=== PATIENT | male | born 1980 | race Caucasian/White ===

== ENCOUNTER 2020-10-23 16:22 | Outpatient (CLI) | payer OTHER, SELFPAY ==
--- NOTE | ~2020-10-23 | XR_ITS ---
EXAMINATION: XR shoulder RT min 2V DATE: 10/23/2020 16:48 INDICATION: Right shoulder pain. TECHNIQUE: 5 views of right shoulder were obtained. COMPARISON: Right shoulder radiographs 03/22/2013 FINDINGS: Bone alignment is normal. No fracture. Joint spaces are well maintained. IMPRESSION: 1. Normal right shoulder. Reviewed, dictated and finalized at location A. STRIAL SERVICER IMPRESSION: 1. Normal right shoulder.
== END 2020-10-23 16:23 | disposition home or self-care (01) ==
LOC: CHSIMG 16:27
PROVIDERS: PCP Family Medicine; Visit Provider Family Medicine
DX: M25.519 Pain in unspecified shoulder (principal)
CPT/HCPCS: 73030

== ENCOUNTER 2021-03-20 15:58 | Outpatient (RCR) | payer OTHER, SELFPAY ==
--- NOTE | 2021-03-20 17:23 | PTOPEVAL ---
Thank you for referring Luisito Gill to [facility].? The patient is scheduled to be seen for therapy? ____x/week for ___ weeks. Please review, sign, date and return this plan of care JOSE. I agree with and certify that the following plan of care is medically necessary. Referring Physician Date Admitting Provider: Attending Provider: BAO RAE Referring Provider: FELISA Outpatient Evaluation Start: 03/20/21 16:03 Freq: Status: Active Protocol: Document 03/20/21 16:03 ACR (Rec: 03/20/21 17:23 [id number] [email or web address]) Therapy Assessment Status Assessment Status Assessment Status Evaluation Evaluation Information Problem Diagnosis R RTC tear Onset 02/28/21 Subjective Information Patient states that he Query Text:As Reported By Patient/ believes his shoulder was Family already torn, but in August he had to pull his dog into the boat and made it worse. The patient states that this is the 3rd surgery that he has gotten. He has been in the sling the past 3 weeks and is not going back to see the doctor for another 4 weeks and is required to stay in the sling. Patient states he has been in a recliner since August. 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 Patient states he is not taking anything for pain, but will occasionally take a tylenol if he is in too much pain. Patient would like to get his movement back. Prior Level of Function Activity Level (Last 3 Months) Occupation superintendent production in construction Hand Dominance Ambidextrous Activity of Daily Living Ability Independent Indoor/Home Mobility Independent Community Mobility Independent Stairs Ability Independent Functional Cognition (Planning, Shopping Independent , Taking Medications) Cooking Yes Cleaning Yes Laundry Yes Shopping Yes Driving Yes Pain Assessment Timing of Pain Assessment Timing of Pain Assessment Assessment Pain Scale Pain
--- NOTE | 2021-03-26 16:52 | PCPTNOTE ---
On 03/26/21, the student, [Liz Joy, SPTA ], provided care and completed [facility] on this patient. I have reviewed the student's documentation and agree with the findings. Mira Harvey SPTA
--- NOTE | 2021-03-27 09:13 | PCPTNOTE ---
On 03/27/21, the student, [ Liz Joy, [facility] provided care and completed [employer] documentation on this patient. I have reviewed the student's documentation and agree with the findings.
--- NOTE | 2021-04-10 17:04 | PCPTNOTE ---
On 04/10/21, the student, [Karin Pérez, SPT], provided care and completed [employer] documentation on this patient. I have reviewed the student's documentation and agree with the findings.
--- NOTE | 2021-04-18 17:20 | PCPTNOTE ---
On 04/18/21, the student, [Karin Pérez, SPT], provided care and completed [employer] documentation on this patient. I have reviewed the student's documentation and agree with the findings.
--- NOTE | 2021-04-30 16:50 | PTOPEVAL ---
Thank you for referring Luisito Gill to [facility].? The patient is scheduled to be seen for therapy? ____x/week for ___ weeks. Please review, sign, date and return this plan of care JOSE. I agree with and certify that the following plan of care is medically necessary. Referring Physician Date Admitting Provider: Attending Provider: BAO RAE Referring Provider: FELISA Outpatient Evaluation Start: 03/20/21 16:03 Freq: Status: Active Protocol: Document 04/30/21 16:03 ACR (Rec: 04/30/21 16:50 [id number] [email or web address]) Therapy Assessment Status Assessment Status Assessment Status Progress Evaluation Information Problem Diagnosis R RTC tear Onset 02/28/21 Subjective Information Patient states that he is able Query Text:As Reported By Patient/ to get his arm above his head Family . He states he has some stiff Pain Assessment Pain Scale Pain Scale Used Numeric (1 - 10) Self Report Pain Assessment Right Shoulder(s) Reported Pain Level 0 Greatest Pain Intensity 2 Pain Score Pain Score 0: Self Report Upper Extremity Range of Motion Scapular/ Shoulder Range of Motion Right Shoulder Flexion - Active 145 Shoulder Medial Rotation - Active 38 Shoulder Lateral Rotation - Active 42 Upper Extremity Muscle Strength Testing General Upper Extremity Strength Gross Upper Extremity Strength Comments Still cannot assess patient's strength due to patient's protocol General Exercise General Exercises Exercise Description -pulleys x5min Query Text:Record Sets, Reps, -UBE x 6 min L1 (3fwd and 3rev Resistance, and Position ) with the R arm resting on the handle not applying pressure to push forward or pull in reverse -scapular retraction isometric x3 minutes -supine shoulder flex AAROM w stick x20 -supine shoulder flex press AAROM w stick x20 -supine shoulder IR/ER AAROM w stick x20 -PROM into flexion, scaption, abduction, and ER/IR x 15 minutes -supine arom R shoulder flex x10 -supine arom R shoudler IR/ER x10 -sidelying arom R shoulder ER x10
--- NOTE | 2021-06-28 17:45 | PTOPEVAL ---
Thank you for referring Luisito Gill to [facility].? The patient is scheduled to be seen for therapy? ____x/week for ___ weeks. Please review, sign, date and return this plan of care JOSE. I agree with and certify that the following plan of care is medically necessary. Referring Physician Date Admitting Provider: Attending Provider: BAO RAE Referring Provider: FELISA Outpatient Evaluation Start: 03/20/21 16:03 Freq: Status: Active Protocol: Document 06/28/21 16:43 ACR (Rec: 06/28/21 17:44 [id number] [email or web address]) Therapy Assessment Status Assessment Status Assessment Status Discharge Evaluation Information Problem Diagnosis R RTC tear Onset 02/28/21 Subjective Information Patient states that his Query Text:As Reported By Patient/ shoulder goes further than it Family has gone in a decade and he has no difficulty. His L shoulder is now giving him pain because he picked up his tool box and increased his lever arm and he felt a pull. Pain Assessment Timing of Pain Assessment Timing of Pain Assessment Assessment Pain Scale Pain Scale Used Numeric (1 - 10) Self Report Pain Assessment Right Shoulder(s) Reported Pain Level 0 Greatest Pain Intensity 0 Pain Score Pain Score 0: Self Report Interventions Used Interventions Used By Clinicians Activity or ADL's,Exercise Upper Extremity Range of Motion Scapular/ Shoulder Range of Motion Right Shoulder Flexion - Active 168 Shoulder Abduction - Active 155 Shoulder Medial Rotation - Active 55 Shoulder Lateral Rotation - Active 70 Upper Extremity Muscle Strength Testing Scapular/Shoulder Right Shoulder Flexion Strength 4+ Good + Shoulder Extension Strength 4+ Good + Shoulder Medial Rotation Strength 4+ Good + Shoulder Lateral Rotation Strength 4 Good Left Shoulder Flexion Strength 3 Fair Shoulder Abduction Strength 3+ Fair + Shoulder Medial Rotation Strength 4 Good Shoulder Lateral Rotation Strength 3 Fair Special Tests-Upper Extremity Shoulder Special Tests Empty Can (supraspinatus) Test Negative Right,Positive Left Drop Arm Test Negative Right,Positive Left General Exercise General Exercises Exercise Description - pulleys x 5 min Query Text:Record Sets, Reps, - PROM into flexion, scaption, Resistance, and Position abduction, and ER/IR x 10 minutes - TB scap retraction blue x 20 - TB shoulder ext x 20 - R shoulder ER blue x 10
== END 2021-06-28 23:59 | disposition home or self-care (01) ==
LOC: CHSPT 15:58
DX: S46.011D Strain of muscle(s) and tendon(s) of the rotator cuff of right shoulder, subsequent encounter (principal); Z09 Encounter for follow-up examination after completed treatment for conditions other than malignant neoplasm
CPT/HCPCS: 97014; 97110; 97140; 97161; G0283

== ENCOUNTER 2024-02-18 16:42 | Outpatient (CLI) | payer OTHER, SELFPAY ==
[2024-02-18 18:05] LABS: Alanine Aminotransferase 28 U/L (16-63); Albumin Level 4.1 g/dL (3.4-5.0); Alkaline Phosphatase 64 U/L (46-116); Anion Gap 9 mmol/L (4-12); Aspartate Amino Transferase 22 U/L (15-37); Bilirubin,Total 0.4 mg/dL (0.00-1.00); Blood Urea Nitrogen 13 mg/dL (7-18); Calcium 9.1 mg/dL (8.5-10.1); Carbon Dioxide 31 mmol/L (21-32); Chloride 98 mmol/L (98-108); Estimated Glomerular Filt Rate > 60; Glucose 85 mg/dL (70-99); Osmolality Calculated 285 mOsm/kg (285-295); Potassium 3.8 mmol/L (3.5-5.1); Sodium 138 mmol/L (136-145); Thyroid Stimulating Hormone 1.23 uIU/mL (0.36-3.74); Total Protein 7.3 g/dL (6.4-8.2)
[2024-02-18 18:38] LABS: HIV 1 P24 AG Negative (Negative); HIV 1/2 AB Negative (Negative)
[2024-02-19 08:04] LABS: Trichomonas Vag PCR NOT DETECTED (NOT DETECTE)
[2024-02-19 08:27] LABS: Chlamydia trachomatis NOT DETECTED (NOT DETECTE); Neisseria gonorrhoeae PCR NOT DETECTED (NOT DETECTE)
[2024-02-20 07:34] LABS: Sex Hormone Binding Globulin 28 nmol/L (10-50)
[2024-02-20 09:43] LABS: RPR Screen NON-REACTIVE (NON-REACTIVE)
[2024-02-23 11:18] LABS: Testosterone Free 119.9 pg/mL (35.0-155.0); Testosterone Total 528 ng/dL (250-1100)
== END 2024-02-18 16:43 | disposition home or self-care (01) ==
PROVIDERS: PCP Family Medicine; Visit Provider Family Medicine
DX: Z11.3 Encounter for screening for infections with a predominantly sexual mode of transmission (principal); R53.83 Other fatigue
CPT/HCPCS: 36415; 80053; 81003; 84270; 84402; 84403; 84443; 86592; 87491; 87591; 87661; 87806

== ENCOUNTER 2024-03-22 07:41 | Outpatient (CLI) | payer OTHER, SELFPAY ==
--- NOTE | ~2024-03-22 | US_ITS ---
TESTICULAR ULTRASOUND (Doppler ultrasound interrogation techniques used as needed for this exam.) Ordering provider: Andrea Jade MD History: . RIGHT TESTICULAR PAIN . Comparison: None. FINDINGS: TESTICLES: Normal in size. The right measures 4.4 x 3.4 x 2.5 cm and the left measures 4 x 3 x 2.6 cm . Normal echogenicity bilaterally without mass lesion. Normal Doppler flow bilaterally. EPIDIDYMIDES: Normal in size. The right measures 1 9 cm. And the left 0.9 cm . Normal echogenicity bi laterally. Both demonstrate normal Doppler flow. A Cyst is seen in the right epididymis measuring 0.9 x 0.9 x 0.8 cm and a cyst is seen in the left epididymis measuring 2.4 x 0.2 x 0.3 cm. HYDROCELE: None. VARICOCELE: None. OTHER ABNORMALITY: None seen. IMPRESSION: Bilateral epididymal cysts. Otherwise, normal testicular ultrasound. Reviewed, dictated and finalized at location A.
== END 2024-03-22 07:42 | disposition home or self-care (01) ==
PROVIDERS: PCP Family Medicine; Visit Provider Family Medicine
DX: N50.811 Right testicular pain (principal); N50.3 Cyst of epididymis
CPT/HCPCS: 76870; 93976

== ENCOUNTER 2024-03-30 15:50 | Outpatient (CLI) | payer OTHER, SELFPAY ==
--- NOTE | ~2024-03-30 | CT_ITS ---
CT abdomen pelvis wo con Ordering provider: Andrea Jade MD History: 43 years Male with . Right Testicular Pain . Comparison: None. Technique: CT abdomen and pelvis without IV and without oral contrast. Radiation reduction technique utilized. DLP is 729.75. Findings: VISUALIZED LOWER CHEST: Normal. UPPER ABDOMINAL ORGANS: Liver: Normal. Gallbladder: Normal. Spleen: Benign calcifications. Stomach/duodenum: Normal. Pancreas: Normal. Adrenals: Normal. Kidneys: Tiny stone in the right kidney upper pole. Minimal fullness of the renal pelvis bilaterally with no definite stones. PELVIC ORGANS: The bladder is normal. BOWEL AND MESENTERY: Colon: No evidence of diverticulitis. Is post appendectomy. Small Bowel: Normal. No obstruction. Peritoneum/mesentery: No free air or free fluid. No mesenteric lymphadenopathy. RETROPERITONEUM: Mild atheromatous disease of the abdominal aorta. No retroperitoneal lymphadenopat hy. MUSCULOSKELETAL: Superficial soft tissues: Bilateral fat containing inguinal hernias. Otherwise, The superficial soft tissues are normal. Bones: Age appropriate degenerative changes of the spine. IMPRESSION: 1. Tiny stone in the right kidney upper pole. 2. Mild fullness of the renal pelvis bilaterally with no ureteric stones. 3. No evidence of bowel obstruction, or diverticulitis. 4. Bilateral fat containing inguinal hernias. Reviewed, dictated and finalized at location A.
== END 2024-03-30 15:51 | disposition home or self-care (01) ==
LOC: CHSIMG 15:51
PROVIDERS: PCP Family Medicine; Visit Provider Family Medicine
DX: N50.811 Right testicular pain (principal); N20.0 Calculus of kidney; K40.20 Bilateral inguinal hernia, without obstruction or gangrene, not specified as recurrent
CPT/HCPCS: 74176